=== PATIENT | female | born 1940 | race Caucasian/White ===

== ENCOUNTER 2020-04-03 09:15 | Emergency (ER) | payer OTHER, MEDICAID ==
[~2020-04-03] VITALS: Ht 162.6 cm; Wt 112.9 kg
[~2020-04-03 09:15] MED LIST: BENA10TA11 PO; INSNPH7030 SQ; METF-381 PO; METO5TAB69 PO; NIFE60TA83 PO
[2020-04-03 09:23] VITALS: BP_SYST 161
--- NOTE | 2020-04-03 09:30 | NUR ---
plPatient to ER bed 3 to gown for evaluation. Side rails up.
--- NOTE | 2020-04-03 09:37 | NUR ---
Pt came to ER for skin rash, claims no changes in soap or detergent that would contribute to rash. Pt presents with rash on L arm, R armpit, bilateral under breast, lower abdomen.
--- NOTE | 2020-04-03 09:38 | NUR ---
ER at bedside examining patient.
[2020-04-03] MEDS ORDERED: FURO-149 PO (09:56)
[2020-04-03] MEDS ORDERED: MULT-1117 PO (09:56)
[2020-04-03] MEDS ORDERED: IBUP-2101 (09:56)
--- NOTE | 2020-04-03 09:56 | NUR ---
Medication reconciliation completed with information provided by self . Any prior medication reconciliation on file was reviewed and corrected.
[2020-04-03] MEDS ORDERED: methylPREDNISolone SOD SUCC/PF 62.5 MG/ML VIAL IM ONE (10:00)
[2020-04-03] MEDS ORDERED: DIPHENHYDRAMINE INJ 50 MG/ML VIAL IM ONE (10:00)
[2020-04-03 10:41] VITALS: BP_SYST 161
--- NOTE | 2020-04-03 10:42 | NUR ---
Patient given written and verbal discharge instructions and verbalizes understanding. ER MD discussed with patient the results and treatment provided. Patient in stable condition. ID arm band removed. Rx of Tari given. Patient educated on pain management and to follow up with PMD. Pain Scale 0/10. Opportunity for questions provided and answered. Medication side effect fact sheet provided.
== END 2020-04-03 10:41 | disposition home or self-care (01) ==
LOC: SED 09:15
DX: R21 Rash and other nonspecific skin eruption (principal); T50.995A Adverse effect of other drugs, medicaments and biological substances, initial encounter; I10 Essential (primary) hypertension; E11.9 Type 2 diabetes mellitus without complications; Z79.899 Other long term (current) drug therapy; Y92.89 Other specified places as the place of occurrence of the external cause
CPT/HCPCS: 96372; 99284; J1200; J2930

== ENCOUNTER 2020-04-13 15:50 | Emergency (ER) | payer OTHER, MEDICAID ==
[~2020-04-13] VITALS: Ht 162.6 cm; Wt 112.9 kg
[~2020-04-13 15:50] MED LIST changes: +FURO-149 PO; +IBUP-2101; -METO5TAB69 PO; +MULT-1117 PO
[2020-04-13 16:00] VITALS: BP_SYST 135
--- NOTE | 2020-04-13 16:00 | NUR ---
Patient to ER bed 2 to gown for evaluation. Side rails up. Report given to GIORGI.
--- NOTE | 2020-04-13 16:02 | NUR ---
PT AAO AND AMBULATORY C/O RASH FOR THE PAST FEW MONTHS. PT ALSO REPORTS THAT SHE HAS RECENTLY NOTICED WORSENING SWELLING IN LOWER EXTREMITIES.
--- NOTE | 2020-04-13 16:05 | NUR ---
ER Dr. EUGENE at bedside examining patient.
[2020-04-13 16:55] VITALS: BP_SYST 135
--- NOTE | 2020-04-13 16:57 | NUR ---
ALERT, RESP UNLABORED, SKIN WITH HEAD TO TOE REDNESS,PEELING AND WEEPING. C/O RASH FOR OVER ONE MONTH. RESP UNLABORED, DENIES ANY RELATED SYMPTOMS. YAKUT ONLY TRANSLATER TO ASSIST
[2020-04-13 17:11] LABS: BASOPHILS % (AUTO) 0.4 % (0.0-2.0); EOSINOPHILS # (AUTO) 0.4 K/uL (0.0-0.4); EOSINOPHILS % (AUTO) 4.5 % (0.0-4.0); HEMOGLOBIN 10.6 g/dL (12.0-16.0); LYMPHOCYTES # (AUTO) 1.6 K/uL (1.0-5.5); LYMPHOCYTES % (AUTO) 18.5 % (20.5-51.5); MEAN CORPUSCULAR HEMOGLOBIN 31 pg (27-31); MEAN CORPUSCULAR HGB CONC 33 % (32-36); MEAN CORPUSCULAR VOLUME 94 fL (79.0-98.0); MONOCYTES # (AUTO) 0.8 K/uL (0.0-1.0); MONOCYTES % (AUTO) 9.8 % (1.7-9.3); NEUTROPHILS # (AUTO) 5.6 K/uL (1.8-7.7); NEUTROPHILS % (AUTO) 66.8 % (40.0-70.0); PLATELET COUNT (AUTO) 260 K/uL (130-430); RED CELL DISTRIBUTION WIDTH 13.3 % (9.0-15.0); WHITE BLOOD COUNT (AUTO) 8.4 K/uL (4.8-10.8)
[2020-04-13 17:36] LABS: ALANINE AMINOTRANSFERASE 15 U/L (12-78); ALBUMIN 2.7 g/dL (3.4-4.8); ANION GAP 8 (5-15); ASPARTATE AMINOTRANSFERASE 14 U/L (10-37); CALCIUM 9.1 mg/dL (8.4-11.0); CHLORIDE 106 mmol/L (98-107); CREATININE 1.32 mg/dL (0.55-1.30); GLUCOSE 137 mg/dL (70-99); POTASSIUM 5.4 mmol/L (3.5-5.1); SODIUM SERUM 138 mmol/L (136-145); TOTAL BILIRUBIN 0.3 mg/dL (0.0-1.0); UREA NITROGEN, BLOOD 39 mg/dL (8-21)
[2020-04-13 17:59] LABS: C-REACTIVE PROTEIN QUANT 10.1 mg/dL (0-0.5)
--- NOTE | 2020-04-13 18:09 | NUR ---
ALERT, CALM, AMULATING TO BATHROOM STEADY GAIT.
--- NOTE | 2020-04-14 16:20 | NUR ---
Patient given written and verbal discharge instructions and verbalizes understanding. ER MD discussed with patient the results and treatment provided. Patient in stable condition. ID arm band removed. Rx of given. Patient educated on pain management and to follow up with PMD. Pain Scale 0/10 Opportunity for questions provided and answered. Medication side effect fact sheet provided.
== END 2020-04-13 18:09 | disposition home or self-care (01) ==
LOC: SED 15:50
DX: R21 Rash and other nonspecific skin eruption (principal); L26 Exfoliative dermatitis; I10 Essential (primary) hypertension; E11.9 Type 2 diabetes mellitus without complications; Z79.899 Other long term (current) drug therapy
CPT/HCPCS: 36415; 71045; 80053; 85025; 86140; 93005; 99285